=== PATIENT | male | born 1990 | race American Indian/Alaskan Native ===

== ENCOUNTER 2018-11-12 09:46 | Emergency (ER) | payer MEDICARE ==
[2018-11-12 10:06] VITALS: BP 102/68
[2018-11-12] MEDS ORDERED: DELTASONE PO ONE (11:33)
[2018-11-12] MEDS ORDERED: ROBITUSSIN PO ONE (11:33)
--- NOTE | 2018-11-12 11:34 | Emergency Department Report ---
Minor Respiratory - HPI Chief Complaint: Upper Respiratory Infection Stated Complaint: FLU LIKE SYMPTOMS Time Seen by Provider: 11/12/18 11:10 Duration: 3 Days Minor Respiratory: Yes Able to Tolerate Fluids, Yes Cough, Yes Fever, No Rhinorrhea, No Sore Throat, No Ear Pain, No Sick Contacts, No Hemoptysis, No Chest Pain, No Shortness of Breath Other History: She is a 28-year-old male presents ED complaining of cough, fever and congestion for the past 3 days. 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 Patient states that he thinks he may have caught it from one of the passenger's of the [employer] bus. . He denies chest pain, shortness of breath, nausea vomiting ED Review of Systems ROS: Stated complaint: FLU LIKE SYMPTOMS Other details as noted in HPI Comment: All other systems reviewed and negative ED Past Medical Hx - Past Medical History Previous Medical History?: No - Surgical History Past Surgical History?: No - Social History Smoking Status: Never Smoker Substance Use Type: None - Medications Home Medications: Home Medications Medication Instructions Recorded Confirmed Last Taken Type Azithromycin [Zithromax] 250 mg PO DAILY #1 pack 11/12/18 Unknown Rx guaiFENesin [Robitussin] 200 mg PO Q6HR #30 tablet 11/12/18 Unknown Rx Minor Respiratory Exam - Exam General: Vital signs noted. No distress. Alert and acting appropriately. HEENT: Yes Moist Mucous Membranes, No Pharyngeal Erythema, No Pharyngeal Exudates, No Rhinorrhea, No Conjuctival Injection, No Frontal Tenderness, No Maxillary Tenderness Ear: Neither TM Bulge, Neither TM Erythema, Neither EAC Pain, Neither EAC Discharge Neck: Yes Supple, No Adenopathy Lungs: Yes Good Air Exchange, No Wheezes, No Ronchi, No Stridor, No Cough, No Labored Respirations, No Retractions, No Use of Accessory Muscles, No Other Abnormal Lung Sounds Heart: Yes Regular, No Murmur Abdomen: Yes Normal Bowel Sounds, No Tenderness, No Peritoneal Signs Skin: No Rash, No Edema Neurologic: Alert and oriented, no deficits. Musculoskeletal: Unremarkable. ED Course Vital Signs 11/12/18 10:05 Temperature 99.9 F H Pulse Rate 89 Respiratory 16 Rate Blood Pressure 102/68 [Left] O2 Sat by Pulse 95 Oximetry ED Medical Decision Making - Radiology Data Radiology results: report reviewed, image reviewed No acute findings - Medical Decision Making 28-year-old male presents with bronchitis/URI X-ray shows no acute pulmonary process no signs of pneumonia Discussed results with patient. Discussed the patient was sent home on the prophylaxis that there was. Patient is in no acute distress Critical care attestation.: If time is entered above; I have spent that time in minutes in the direct care of this critically ill patient, excluding procedure time. ED Disposition Clinical Impression: Acute bronchitis, URI (upper respiratory infection) Disposition: TO HOME OR SELFCARE Is pt being admited?: No Does the pt Need Aspirin: No Condition: Stable Instructions: Upper Respiratory Infection (ED), Acute Bronchitis (ED) Additional Instructions: Make sure to follow up with the primary care physician as discussed. Take all your medications as you've been prescribed. If you have any worsening symptoms or develop new symptoms please return to ED immediately. Prescriptions: Azithromycin [Zithromax] 250 mg PO DAILY #1 pack guaiFENesin [Robitussin] 200 mg PO Q6HR #30 tablet Referrals: [facility] [Outside] - 3-5 Days [facility] [Outside] - 3-5 Days Forms: Work/School Release Form(ED) Time of Disposition: 14:03
--- NOTE | 2018-11-12 13:31 | XRay Report ---
ROUTINE CHEST, TWO VIEWS: HISTORY: Cough, fever. The trachea, heart, mediastinal contour, lung romero and bony thorax are unremarkable. IMPRESSION: Unremarkable chest x-ray.
== END 2018-11-12 14:23 | disposition home or self-care (01) ==
LOC: ED 09:46
DX: J20.9 Acute bronchitis, unspecified (principal); J06.9 Acute upper respiratory infection, unspecified
CPT/HCPCS: 71046; 99283; J7512